=== PATIENT | male | born 1970 ===

== ENCOUNTER 2018-02-09 12:26 | Emergency (ER) | payer MEDICAID, OTHER ==
[2018-02-09 12:36] VITALS: BP 147/92; RESP 18; TEMP 97.8; O2SAT 97
--- NOTE | 2018-02-09 14:48 | ED PDOC ---
HPI: General Adult Time Seen by Provider: 02/09/18 13:16 Chief Complaint (Nursing): Medical Clearance Chief Complaint (Provider): Medical Clearance History Per: Patient, Other (police) History/Exam Limitations: no limitations Onset/Duration Of Symptoms: Other (anxious for 1x year) Current Symptoms Are (Timing): Still Present Additional Complaint(s): 47 year old male with a past medical history of hypertension (non-compliant with medications) presents to the ED with [place] [employer] for medical and psychiatric clearance for incarceration. Patient is in custody for outstanding warrants. Patient reports feeling anxious intermittently for the past 1x year. Patient reports that the symptoms worsen with alcohol and drug use. Patient admits to drinking heavily last night and using cocaine and smoking marijuana. Patient reports having associated palpitations and feelings of nervousness. Patient reports that he has never been on medication for anxiety or been formally diagnosed with anxiety. Other psychiatric symptoms: (-) hallucinations, (-) suicidal ideation, (-) homicidal ideation (-) patient intent of initiating a suicide attempt, (-) plan, (-) other complaints. PMD: None. Past Medical History Reviewed: Historical Data, Nursing Documentation, Vital Signs Vital Signs: Last Vital Signs Temp 97.8 F 02/09/18 12:34 Pulse 80 02/09/18 12:34 Resp 18 02/09/18 12:34 BP 147/92 H 02/09/18 12:34 Pulse Ox 97 02/09/18 12:34 - Medical History PMH: Depression, HTN - Surgical History Surgical History: No Surg Hx - Family History Family History: States: No Known Family Hx - Social History Current smoker - smoking cessation education provided: Yes Alcohol: Other (yes) Drugs: Cannabis, Cocaine - Home Medications Home Medications: Ambulatory Orders Medication Instructions Recorded RX: Gabapentin [Neurontin] 100 mg PO TID 30 Days #90 cap 10/18/17 RX: OXcarbazepine [Trileptal] 300 mg PO BID 30 Days #60 tab 10/18/17 RX: traZODone [Desyrel] 50 mg PO HS 30 Days #30 tab 10/18/17 - Allergies Allergies/Adverse Reactions: Allergies Allergy/AdvReac Type Severity Reaction Status Date / Time No Known Allergies Allergy Verified 02/09/18 12:33 Review of Systems ROS Statement: Except As Marked, All Systems Reviewed And Found Negative Constitutional: Negative for: Fever Cardiovascular: Positive for: Palpitations Respiratory: Negative for: Shortness of Breath Neurological: Negative for: Headache Psych: Positive for: Anxiety (and nervousness). Negative for: Suicidal ideation, Other (hallucinations, homicidal ideation) Physical Exam - Reviewed Nursing Documentation Reviewed: Yes Vital Signs Reviewed: Yes - Physical Exam Comments: GENERAL APPEARANCE: Patient is awake, alert, oriented x 3, in no acute distress. Resting comfortably. SKIN: Warm, dry; (-) cyanosis ENMT: Mucous membranes moist. Airway patent: (-) stridor. NECK: Supple, FROM HEART AND CARDIOVASCULAR: (-) irregularity CHEST AND RESPIRATORY: (-) rales, (-) rhonchi, (-) wheezes; breath sounds equal. Respirations even and nonlabored. ABDOMEN: Soft, (-) distention, (-) tenderness, (-) guarding. NEURO AND PSYCH: Mental status as above. (-) facial asymmetry. Gait: steady. Speech: clear. - ECG ECG: Positive for: Interpreted By Me, Viewed By Me ECG Rhythm: Positive for: Sinus Rhythm (normal), Right Bundle Branch Block (incomplete) Interpretation Of ECG: QTC is 405 (-) ST elevation (-) T wave inversions Rate: 72 O2 Sat by Pulse Oximetry: 97 (RA) Pulse Ox Interpretation: Normal Medical Decision Making Medical Decision Makin:15 Clinical impression: 47 year old male in the ED for medical clearance for incarceration, and anxiety. Initial plan: * EKG * drug screen * crisis evaluation * reevaluation 1530 Crisis at bedside. 1500 Patient resting comfortably on re-evaluation. Reports resolution of anxiety - requesting food tray and to call his girlfriend. Utox: (+) cocaine (+) cannabinoids Pending crisis disposition. 1725 Per crisis evaluation, patient to be discharged into PD custody with the diagnosis of Alcohol Use Disorder- Severe, per Dr Maria. On exam, patient remains AAOx3, in no acute distress. Vitals stable. Lab/Diagnostic results d/w the patient in great detail. Diagnosis of medical and psychiatric clearance for incarceration; alcohol use disorder d/w the patient. Based on history, exam and diagnostic results, plan will be for discharge into PD custody. Return to the emergency room at any time for any new or worsening symptoms. Patient states he fully agrees with and understands discharge instructions. States that he agrees with the plan and disposition. Verbalized and repeated discharge instructions and plan. I have given the patient opportunity to ask any additional questions. Scribe Attestation: Documented byShira Vázquez, acting as a scribe for Shira Dietrich Provider Scribe Attestation: All medical record entries made by the Scribe were at my direction and personally dictated by me. I have reviewed the chart and agree that the record accurately reflects my personal performance of the history, physical exam, medical decision making, and the department course for this patient. I have also personally directed, reviewed, and agree with the discharge instructions and disposition. Disposition - Clinical Impression Clinical Impression: Alcohol use disorder, Medical clearance for incarceration, Evaluation by psychiatric service required - Patient ED Disposition Is Patient to be Admitted: No Counseled Patient/Family Regarding: Studies Performed, Diagnosis, Need For Followup - Disposition Referrals: [facility] [Outside] [facility] [Outside] Disposition: Discharged/Transfer to Law Enforcement ([facility][1]) Disposition Time: 17:25 Condition: STABLE Additional Instructions: PATIENT IS MEDICALLY AND PSYCHIATRICALLY STABLE FOR INCARCERATION. The emergency medical care you received today was directed at your acute symptoms. If you were prescribed any medication, please fill it and take as directed. It may take several days for your symptoms to resolve. Return to the Emergency Department if your symptoms worsen, do not improve, or if you have any other problems. Please contact your doctor in 2 days for re-evaluation and follow up / or call one of the physicians/clinics you have been referred to that are listed on the Patient Visit Information form that is included in your discharge packet. Bring any paperwork you were given at discharge with you along with any medications you are taking to your follow up visit. Our treatment cannot replace ongoing medical care by a primary care provider (PCP) outside of the emergency department. Instructions: Alcohol Use - When Is Drinking a Problem?, Alcohol Abuse and Alcoholism (DC), General (DC), Effects of Alcohol on Your Health Forms: [employer] (German) Print Language: SERBIAN - POA Present On Arrival: None Results - Lab Results Lab Results: 02/09/18 16:20 Urine Opiates Screen Negative Urine Methadone Screen Negative Ur Barbiturates Screen Negative Ur Phencyclidine Scrn Negative Ur Amphetamines Screen Negative U Benzodiazepines Scrn Negative U Oth Cocaine Metabols Positive H U Cannabinoids Screen Positive H
[2018-02-09 14:53] VITALS: PULSE 72
[2018-02-09 16:49] LABS: BARBITURATES, UR NEGATIVE (NEGATIVE); BENZODIAZEPINES, UR NEGATIVE (NEGATIVE); OPIATES, UR NEGATIVE (NEGATIVE); PHENCYCLIDINE, UR NEGATIVE (NEGATIVE)
--- NOTE | 2018-02-10 23:05 | CARD ---
APPROVED REPORT Date of service: 02/09/2018 EKG Measurement Heart [id number] <Conclusion> Normal sinus rhythm Incomplete right bundle branch block Possible septal infarct, age undetermined Abnormal ECG
== END 2018-02-09 17:42 ==
LOC: H.ER 12:26
DX: F10.10 Alcohol abuse, uncomplicated (principal)

== ENCOUNTER 2018-06-20 07:52 | Emergency (ER) | payer MEDICAID ==
[2018-06-20 07:55] VITALS: BMI 25.7
--- NOTE | 2018-06-20 09:27 | CT ---
Date of service: 06/20/2018 PROCEDURE: CT HEAD WITHOUT CONTRAST. HISTORY: r/o bleed COMPARISON: None available. TECHNIQUE: Axial computed tomography images were obtained through the head/brain without intravenous contrast. Radiation dose: Total exam DLP = 2006.48 mGy-cm. This CT exam was performed using one or more of the following dose reduction techniques: Automated exposure control, adjustment of the mA and/or kV according to patient size, and/or use of iterative reconstruction technique. FINDINGS: HEMORRHAGE: No intracranial hemorrhage. BRAIN: Normal ellis-white matter differentiation and density are appreciated throughout the cerebrum and cerebellum with the brainstem appearing unremarkable as well. There is no mass effect. There is no suspicious extra-axial fluid collection and the midline brain anatomy appears diffusely unremarkable. VENTRICLES: Unremarkable. No hydrocephalus. CALVARIUM: No destructive bony lesion or displaced fracture identified including through the skullbase. PARANASAL SINUSES: Multifocal mucosal inflammatory changes affect bilateral ethmoid air cells diffusely with bilateral maxillary sinus polyps or retention cysts, greater at the left and right side. MASTOID AIR CELLS: Unremarkable as visualized. No inflammatory changes. OTHER FINDINGS: None. IMPRESSION: Unremarkable unenhanced head CT. Sinus disease bilaterally noted including polyps or cysts at the left greater than right maxillary sinuses.
--- NOTE | 2018-06-20 09:56 | RAD ---
Date of service: 06/20/2018 PROCEDURE: Bilateral Knee Radiographs. HISTORY: trauma COMPARISON: None. TECHNIQUE: 4 views obtained. FINDINGS: BONES: Right Knee: No fracture appreciated Left Knee: No fracture appreciated JOINTS: Right Knee: Mild arthrosis Left knee: Mild arthrosis SOFT TISSUES: Right Knee: Normal. Left Knee: Normal. JOINT EFFUSION: Right Knee: None. Left Knee: None. OTHER FINDINGS: quadriceps insertional enthesophyte. IMPRESSION: No acute appearing fracture suggested. Other findings as above.
--- NOTE | 2018-06-20 09:57 | RAD ---
Date of service: 06/20/2018 HISTORY: Chest pain COMPARISON: 10/12/2017 TECHNIQUE: Chest PA and lateral views FINDINGS: LUNGS: No active pulmonary disease. PLEURA: No significant pleural effusion identified. No pneumothorax apparent. CARDIOVASCULAR: No aortic atherosclerotic calcification present. Normal cardiac size. No pulmonary vascular congestion. OSSEOUS STRUCTURES: Thoraco lumbar spondylosis. Right acromioclavicular joint arthrosis VISUALIZED UPPER ABDOMEN: Normal. OTHER FINDINGS: None. IMPRESSION: No active disease. No interval pathology noted.
--- NOTE | 2018-06-20 09:58 | RAD ---
Date of service: 06/20/2018 PROCEDURE: Radiographs of the Lumbar Spine. HISTORY: trauma COMPARISON: No prior. TECHNIQUE: Two views obtained. FINDINGS: BONES: Normal alignment. No listhesis. No fracture. Mild anterior superior L5 vertebral body spurring Schmorl's node like indentations there are endplate of L5 and minimally at L4 and L3 levels. L2 superior endplate may be projectional. DISC SPACES: Unremarkable. OTHER FINDINGS: Atherosclerotic vascular calcifications present. IMPRESSION: No fracture or subluxation. Other findings as above.
--- NOTE | 2018-06-20 09:59 | RAD ---
Date of service: 06/20/2018 PROCEDURE: Radiographs of the Right Shoulder HISTORY: trauma COMPARISON: No prior. TECHNIQUE: 3 views obtained. FINDINGS: BONES: No fracture appreciated JOINTS: Glenohumeral joint unremarkable. Acromioclavicular joint arthrosis. SOFT TISSUES: Normal. OTHER FINDINGS: None. IMPRESSION: No fracture or dislocation appreciated. Right acromioclavicular joint arthrosis
--- NOTE | 2018-06-20 10:28 | ED PDOC ---
HPI: General Adult Time Seen by Provider: 06/20/18 07:55 Chief Complaint (Nursing): Medical Clearance Chief Complaint (Provider): Medical Clearance History Per: Patient History/Exam Limitations: no limitations Onset/Duration Of Symptoms: Hrs Additional Complaint(s): 47 y/o male brought in by the police presents to the ED due to medical and psychiatric evaluation prior to incarceration. Patient states that police broke in to his house, threw him to the ground and drag him out. He is complaining of facial pain, right shoulder pain, back ache, chest wall pain, and knee pain. Patient reports he was admitted here for psychiatric. Patient denies any loss of consciousness. PMD: none provided Past Medical History Reviewed: Historical Data, Nursing Documentation, Vital Signs Vital Signs: Last Vital Signs Temp 97.6 F 06/20/18 07:56 Pulse 96 H 06/20/18 08:06 Resp 20 06/20/18 08:06 BP Pulse Ox 100 06/20/18 08:06 Primary Care Provider: FAMILY PROVIDER,NO - Medical History PMH: Anxiety, Bipolar Disorder, Depression, HTN Denies: Diabetes, Hepatitis, HIV, Chronic Kidney Disease, Seizures, Sexually Transmitted Disease Other PMH: Impulse disorder. - Family History Family History: States: Unknown Family Hx - Home Medications Home Medications: Ambulatory Orders Medication Instructions Recorded Gabapentin [Neurontin] 100 mg PO TID 30 Days #90 cap 10/18/17 OXcarbazepine [Trileptal] 300 mg PO BID 30 Days #60 tab 10/18/17 traZODone [Desyrel] 50 mg PO HS 30 Days #30 tab 10/18/17 - Allergies Allergies/Adverse Reactions: Allergies Allergy/AdvReac Type Severity Reaction Status Date / Time No Known Allergies Allergy Verified 06/20/18 08:06 Review of Systems ROS Statement: Except As Marked, All Systems Reviewed And Found Negative Cardiovascular: Positive for: Chest Pain Musculoskeletal: Positive for: Shoulder Pain (right), Back Pain, Other (Knee pain) Physical Exam - Reviewed Nursing Documentation Reviewed: Yes Vital Signs Reviewed: Yes - Physical Exam Appears: Positive for: Well, Non-toxic, No Acute Distress Head Exam: Positive for: ATRAUMATIC, NORMAL INSPECTION (Superfical laceration under right eye. Patietn request steri strip for suture.), NORMOCEPHALIC Skin: Positive for: Normal Color, Warm, DRY Eye Exam: Positive for: EOMI, Normal appearance, PERRL ENT: Positive for: Normal ENT Inspection Neck: Positive for: Normal (nontender pastorally ), Painless ROM Cardiovascular/Chest: Positive for: Regular Rate, Rhythm. Negative for: Murmur Respiratory: Positive for: Normal Breath Sounds. Negative for: Wheezing Gastrointestinal/Abdominal: Positive for: Normal Exam, Soft. Negative for: Tenderness Back: Positive for: Normal Inspection, Other (No deformity.). Negative for: L CVA Tenderness, R CVA Tenderness, Vertebral Tenderness Extremity: Positive for: Normal ROM, Other (Right shoulder abrasion anterior. Abrasion to knees bilaterally.). Negative for: Deformity Neurological/Psych: Positive for: Awake, Alert, Normal Tone, Oriented (x3). Negative for: Motor/Sensory Deficits - ECG O2 Sat by Pulse Oximetry: 100 Medical Decision Making Medical Decision Making: Time:809 Impression: Plan: -CT -X-rays -US Scribe Attestation: Documented by Paula Seymour, acting as a scribe for Adal Baez Provider Scribe Attestation: All medical record entries made by the Scribe were at my direction and personally dictated by me. I have reviewed the chart and agree that the record accurately reflects my personal performance of the history, physical exam, medical decision making, and the department course for this patient. I have also personally directed, reviewed, and agree with the discharge instructions and disposition. Disposition - Clinical Impression Clinical Impression: Facial laceration, Contusion - Patient ED Disposition Is Patient to be Admitted: No Counseled Patient/Family Regarding: Diagnosis, Need For Followup - Disposition Referrals: [facility] [Outside] Disposition: Discharged/Transfer to Law Enforcement Disposition Time: 12:02 Condition: FAIR Additional Instructions: Medically and psychiatrically stable for incarceration Instructions: General (DC), Contusion (DC), Wound Care (DC) Forms: [facility] (American)
[2018-06-20 11:55] VITALS: RESP 18
[2018-06-20 12:04] VITALS: O2SAT 100
[2018-06-20 13:51] VITALS: BP 141/84; PULSE 85; TEMP 97.9
== END 2018-06-20 12:34 | disposition home or self-care (01) ==
LOC: H.ER 07:52
DX: S01.411A Laceration without foreign body of right cheek and temporomandibular area, initial encounter (principal); Z86.59 Personal history of other mental and behavioral disorders; I10 Essential (primary) hypertension; R07.89 Other chest pain; T14.8XXA Other injury of unspecified body region, initial encounter